=== PATIENT | female | born 1990 | race Caucasian/White ===

== ENCOUNTER 2017-06-12 10:10 | Emergency (ER) | payer BC ==
--- NOTE | 2017-06-12 10:27 | UC ---
Lower Extremity/Ankle HPI - HPI Summary HPI Summary: This 27-year-old 12 week woman comes in today with left calf pain she says she walks a lot at work and has never had pain like this ever before the pain radiates from the back of her calf down to her ankle she does not have any swelling she does not have any family history of DVT or clotting disorders she has not been on any long trips or had any prolonged Bed rest. neuro motor situation intact distally - History of Current Complaint Chief Complaint: UCLowerExtremity Stated Complaint: LEG SWELLING PAIN Time Seen by Provider: 06/12/17 10:24 Hx Obtained From: Patient ?: Yes - 12 weeks Onset/Duration: Sudden Onset, Lasting Days - 2 Severity Initially: Mild Severity Currently: Moderate Pain Intensity: 6 Pain Scale Used: 0-10 Numeric Aggravating Factor(s): Standing Alleviating Factor(s): Nothing Able to Bear Weight: Yes - Allergies/Home Medications Allergies/Adverse Reactions: Allergies Allergy/AdvReac Type Severity Reaction Status Date / Time No Known Allergies Allergy Verified 06/12/17 10:13 Home Medications: Home Medications Loratadine [Claritin] 10 mg PO DAILY 06/12/17 [History Confirmed 06/12/17] Pre- Vitamin 1 tab PO DAILY 06/12/17 [History Confirmed 06/12/17] raNITIdine HCl [Zantac] 150 mg PO DAILY 06/12/17 [History Confirmed 06/12/17] PMH/Surg Hx/FS Hx/Imm Hx Previously Healthy: No - enviromental allergies GI/ History: Gastroesophageal Reflux - Surgical History Surgical History: Yes Surgery Procedure, Year, and Place: wisdom teeth - Family History Known Family History: Positive: None - Social History Occupation: Employed Full-time Lives: With Family Alcohol Use: None Substance Use Type: None Smoking Status (MU): Former Smoker Review of Systems Constitutional: Negative Skin: Negative Eyes: Negative ENT: Negative Respiratory: Negative Cardiovascular: Negative Gastrointestinal: Negative Genitourinary: Negative Motor: Negative Neurovascular: Negative Musculoskeletal: Myalgia - left calf Neurological: Negative Psychological: Negative Is Patient Immunocompromised?: No All Other Systems Reviewed And Are Negative: Yes Physical Exam Triage Information Reviewed: Yes Appearance: Well-Appearing, No Pain Distress, Well-Nourished Vital Signs: Initial Vital Signs Temp 99.5 F 06/12/17 10:15 Pulse 91 03/02/18 10:15 Resp 16 06/12/17 10:15 BP 144/82 06/12/17 10:15 Pulse Ox 100 06/12/17 10:15 Vital Signs Reviewed: Yes Eye Exam: Normal ENT Exam: Normal ENT: Positive: Normal ENT inspection, Hearing grossly normal. Negative: Trismus , Muffled voice, Hoarse voice, Dental tenderness Dental Exam: Normal Neck exam: Normal Neck: Positive: Supple, Nontender, No Lymphadenopathy Respiratory Exam: Normal Respiratory: Positive: Chest non-tender, No respiratory distress, No accessory muscle use Cardiovascular Exam: Normal Cardiovascular: Positive: RRR, Pulses Normal, Brisk Capillary Refill Musculoskeletal Exam: Normal Musculoskeletal: Positive: Strength Intact, ROM Intact, No Edema Neurological Exam: Normal Neurological: Positive: Alert, Muscle Tone Normal Psychological Exam: Normal Skin Exam: Normal Diagnostics - Laboratory Diagnostic Studies Completed/Ordered: Ultrasound of left lower extremity showed an occlusion in the tibial vein near the ankle. ultrasound showed a single live intrauterine 12 weeks 3 days gestation heart rate 160 bpm Lower Extremity Course/Dx - Course Course Of Treatment: Course of treatment reviewed this case extensively with Dr. Muller who was on-call for [facility] plan is to start patient on 100 mg of Lovenox twice a day have her call the office Thursday for sooner appointment than her scheduled appointment for next Thursday follow up with Dr. Marbella Burgess or Dr. Szymanski. for hematoma consult and she will be out of work until reevaluated by [facility] myself nurse went in an assisted patient and provided education and safe Lovenox injecting patient was able to inject herself with Lovenox safely and had good understanding she does have family support at home as her brother is diabetic as well Dr. Jackson did want not want any blood work done prior to her appointment with [facility] - Differential Dx/Diagnosis Provider Diagnoses: DVT left tibial gordy near ankle, live IUP 12week 3 d, hypertension without dx of hypertension Discharge - Discharge Plan Condition: Good Disposition: HOME Prescriptions: Enoxaparin(*) [Lovenox(*)] 100 mg SUBCUT Q12HR #60 syringe Patient Education Materials: Deep Vein Thrombosis (ED), Enoxaparin (By injection) Forms: *Work Release Referrals: Marbella Wayne MD [Medical Doctor] - As Soon As Possible [facility] [Provider Group] - As Soon As Possible (I) Additional Instructions: Follow-up instructions call [facility] on Thursday to schedule a sooner appointment per Dr. Fritz Muller call for follow-up appointment with Dr. Marbella Wayne or Dr. Szymanski who are hematology specialists to evaluate the reason for this blood clot you'll be out of work until reevaluated by [facility] next week and please continue your Lovenox
--- NOTE | 2017-06-12 11:32 | RAD ---
INDICATION: Pain and swelling. 12 weeks COMPARISON: None TECHNIQUE: Duplex interrogation of the Lowerextremity was performed. FINDINGS: Deep veins: The common femoral, great saphenous, profunda femoris, proximal, mid, and distal deep femoral, popliteal, posterior tibial, and peroneal veins are interrogated. The distal posterior tibial vein at the ankle appear thrombosed remaining deep venous structures is normal compressibility, augmentation, and phasic flow. Superficial veins: There are no findings of superficial thrombophlebitis. Popliteal fossa:There is no evidence of a popliteal cyst. Soft tissues:There are no soft tissue abnormalities. IMPRESSION: POSITIVE FOR DEEP VENOUS THROMBOSIS. THERE is THROMBOSIS OF THE POSTERIOR TIBIAL VEINS AT THE ANKLE, OTHERWISE NEGATIVE. NO EVIDENCE OF DEEP VENOUS THROMBOSIS ABOVE THE KNEE
[2017-06-12 12:14] VITALS: BP 141/73
--- NOTE | 2017-06-12 12:26 | RAD ---
HISTORY: First ultrasound, . Size dates viability. No other history is provided. Gestational age by dates of 12 weeks and 1 day COMPARISONS: None available at the time of dictation TECHNIQUE: Multiple transverse and longitudinal ultrasound images were obtained of the pelvis using grayscale, and M-Mode Doppler imaging using the transabdominal transducer. FINDINGS: UTERUS: The uterus is normal in shape, size, contour, and echotexture. GESTATION: There is a single live intrauterine gestation. The crown-rump length measures 5.9 cm for a gestational age of 12 weeks, 3 days. The BUBBA is December 22, 2017. This is concordant with age by dates. cardiac motion is detected at a rate of 160 beats per minute. Gross movement is identified. anatomy cannot be assessed secondary to early dates. The amniotic fluid is qualitatively normal. There are no retroplacental fluid collections. CUL-DE-SAC: There is no free fluid within the cul-de-sac. RIGHT OVARY: The right ovary measures 4.1 x 3.5 x 2.7 cm. LEFT OVARY: The left ovary measures 3.4 x 4.2 x 2.8 cm. BLADDER: The visualized bladder is unremarkable. OTHER: The cervix measures 8.2 cm in length IMPRESSION: SINGLE LIVE INTRAUTERINE GESTATION AT 12 WEEKS AND 3 DAYS BY CROWN-RUMP LENGTH.
[2017-06-12] MEDS ORDERED: Enoxaparin(*) 100 MG/ML SYR SUBCUT ONE ×2 (12:57→13:19)
== END 2017-06-12 13:30 | disposition home or self-care (01) ==
LOC: UCEAST 10:10
DX: O22.31 Deep phlebothrombosis in pregnancy, first trimester (principal); I82.442 Acute embolism and thrombosis of left tibial vein; O16.1 Unspecified maternal hypertension, first trimester; Z3A.12 12 weeks gestation of pregnancy; K21.9 Gastro-esophageal reflux disease without esophagitis
CPT/HCPCS: 76802; 96372; 99212; G0463; J1650

== ENCOUNTER 2017-08-13 07:23 | Emergency (ER) | payer BC ==
[2017-08-13 07:41] VITALS: BP 135/79
--- NOTE | 2017-08-13 07:57 | UC ---
Angus Walls Angela, scribed for Tracey Brar MD on 08/13/17 at 0753 . General HPI - HPI Summary HPI Summary: This pt is a 27 y/o female, currently 21 weeks , presenting to [facility] c/o nausea, vomiting, and diarrhea. Pt reports her vomiting began last night at 21:30 and since then she has had 5 episodes of emesis. The last episode of emesis was at 03:00 today. Her diarrhea began at 03:00 today, her last episode of diarrhea was 1 hour ago. Denies black or bloody stools. She additionally notes cramping in bilateral abd sides improved with BM. Pt is able to feel movement. Denies vaginal bleeding, discharge, dysuria, hematuria. Denies sick contacts. Pt became sick after she had food at work yesterday but no one else ate this. Pt is currently on Lovenox for DVT, she has not missed any doses. She has an appointment in [place] for her comprehensive US at 15:00 today. Pt was told should not come if "sick" Pt states she is here to see "if I can go" She took her vitamins yesterday, she notes she takes them sporadically , and this was the first time after 5 days. NKDA. Pt drank 1 bottle of water since 3am Pt denies vaginal discharge, bleeding, cramping Patients medication reviewed this visit. - History of Current Complaint Chief Complaint: UCAbdominalPain Stated Complaint: VOMITING Time Seen by Provider: 08/13/17 07:45 Hx Obtained From: Patient Hx Last Menstrual Period: 03/19/17 Onset/Duration: Lasting Hours, Still Present Current Severity: Mild Pain Intensity: 3 Pain Location at: abd Character: cramping Aggravating: nothing Alleviating: nothing Associated Signs & Symptoms: Positive: Abdominal Pain, Diarrhea, Nausea, Vomiting, Other - NEG: vaginal bleeding, discharge, dysuria, hematuria.. Negative: Dysuria, Fever - Allergy/Home Medications Allergies/Adverse Reactions: Allergies Allergy/AdvReac Type Severity Reaction Status Date / Time No Known Allergies Allergy Verified 08/13/17 07:32 PMH/Surg Hx/FS Hx/Imm Hx Cardiovascular History: Deep Vein Thrombosis Respiratory History: Asthma - Surgical History Surgical History: Yes Surgery Procedure, Year, and Place: wisdom teeth - Family History Known Family History: Negative: Cardiac Disease, Hypertension, Diabetes - Social History Occupation: Employed Full-time Alcohol Use: None Substance Use Type: None Smoking Status (MU): Former Smoker Review of Systems Constitutional: Negative Skin: Negative Eyes: Negative ENT: Negative Respiratory: Negative Cardiovascular: Negative Gastrointestinal: Abdominal Pain, Vomiting, Diarrhea, Nausea, Other - NEG: black or bloody stools Genitourinary: Negative Motor: Negative Neurovascular: Negative Musculoskeletal: Negative Neurological: Negative Psychological: Negative All Other Systems Reviewed And Are Negative: Yes Physical Exam Triage Information Reviewed: Yes Appearance: Well-Appearing, No Pain Distress, Well-Nourished Vital Signs: Initial Vital Signs Temp 98.1 F 08/13/17 07:34 Pulse 129 08/13/17 07:34 Resp 14 08/13/17 07:34 BP 135/79 08/13/17 07:34 Pulse Ox 98 08/13/17 07:34 Vital Signs Reviewed: Yes Eye Exam: Normal Eyes: Positive: Conjunctiva Clear ENT Exam: Normal ENT: Positive: Normal ENT inspection, Hearing grossly normal, Pharynx normal, TMs normal Dental Exam: Normal Neck exam: Normal Neck: Positive: Supple, Nontender, No Lymphadenopathy Respiratory Exam: Normal Respiratory: Positive: Chest non-tender, Lungs clear, Normal breath sounds, No respiratory distress, No accessory muscle use Cardiovascular Exam: Normal Cardiovascular: Positive: RRR, No Murmur, Pulses Normal Abdominal Exam: Normal Abdomen Description: Positive: Nontender, No Organomegaly, Soft, Other: - gravid soft + BS no guarding, no rebound Musculoskeletal Exam: Normal Musculoskeletal: Positive: Strength Intact Neurological Exam: Normal Neurological: Positive: Alert Psychological Exam: Normal Skin Exam: Normal Course/Dx - Course Course Of Treatment: heart rate is 160. pt with n/v/d since last pm. Pt has had 1 and 1/2 bottle water since 3am. no further vomiting. Pt well appearing. VSS. Will check urine for UTI and ketones. recommend home and rest. frequent sips. zofran prn. strict return precautions. Pt comfortable and in agreement with plan - Differential Dx - Multi-Symptom Provider Diagnoses: acute nausea/vomiting. acute diarrhea Discharge - Sign-Out/Discharge Documenting (check all that apply): Discharge/Admit/Transfer - Discharge - Discharge Plan Condition: Stable Disposition: HOME Prescriptions: Ondansetron [Zofran Odt] 4 mg PO Q6HR PRN #5 tab.rapdis PRN Reason: Vomiting Patient Education Materials: Acute Nausea and Vomiting (ED), Acute Diarrhea (ED ) Referrals: Nely Suggs MD [Primary Care Provider] - Additional Instructions: - It is important you stay hydrate. For the first 6 hours, eat and drink clears (water, holli kapil, soup broth, jello, popsicles, Gatorade). If you tolerate this okay, add bland foods such as dry toast, scrambled eggs, crackers. Wait until you are feeling better for 24 hours before eating spicy food, acidic food, tomato based food, fried food. - Okay to take medications as prescribed for nausea - Okay to take Tylenol every 6 hours for fever or pain - If your symptoms persist or you develop new or concerning symptoms it is recommended you contact your kinesiology internship doctor or go to the emergency department for additional treatment and care - Billing Disposition and Condition Condition: STABLE Disposition: HOME The documentation as recorded by the Angus lewis Angela accurately reflects the service I personally performed and the decisions made by me, Tracey Brar MD.
== END 2017-08-13 08:30 | disposition home or self-care (01) ==
LOC: UCEAST 07:23
DX: O21.2 Late vomiting of pregnancy (principal); R19.7 Diarrhea, unspecified; R10.32 Left lower quadrant pain; R10.31 Right lower quadrant pain; Z3A.21 21 weeks gestation of pregnancy; Z86.718 Personal history of other venous thrombosis and embolism; Z79.01 Long term (current) use of anticoagulants; J45.909 Unspecified asthma, uncomplicated; Z87.891 Personal history of nicotine dependence
CPT/HCPCS: 81003; 99212; G0463

== ENCOUNTER 2017-12-18 11:30 | Inpatient (IN) | payer BC ==
[2017-12-18] MEDS ORDERED: Dinoprostone* 10 MG VAG.SUPP VAGINAL ONE (11:34)
--- NOTE | 2017-12-18 15:39 | HP ---
General Information - Reason for Visit Pt present for induction of labor 2nd to being on a high dose of heparin due to DVT in the first trimester. - General Information Maternal Age: 27 Grav: 2 Para: 0 SAB: 1 IEA: 0 Estimated Due Date: 12/24/17 Determined By: LMP Maternal Blood Type and Rh: A Positive - Results this Serology/RPR Result: Non-Reactive Rubella Result: Immune HBsAg Result: Negative HIV Result: Negative GBS Culture Result: Negative Past Medical History Pertinent Past Medical History: See Records Pertinent Past Surgical History: See Records Pertinent Family History: Non-Contributory - Antepartal Records Antepartal Records: Reviewed, Complicated by: - DVT in 1st trimester Review of Systems Constitutional: Comfortable CV Complaint: No Respiratory: Shortness of Breath: No Gastrointestinal: No Nausea/Vomiting, Normal Bowel Movement Genitourinary: No Dysuria, No Bleeding, No Leaking Fluid Musculoskeletal: No Complaint Neurological: No Headache, No Visual Changes Movement: Normal Exam Allergies/Adverse Reactions: Allergies No Known Allergies Allergy (Verified 08/13/17 07:32) WNL - Measurements Height: 5 ft 10 in Weight: 276 lb Weight in lbs: [phone] Body Mass Index (BMI): 39.6 Pre- Weight: 256 lb Weight Gained This : 20 lbs and 0 ozs - Exam Breast: Breast Exam Deferred Extremities: No Edema Heart: Normal Rhythm/Heart Sounds HEENT: No Significant Findings - Abdominal Exam Abdomen Exam: Non-Tender, Fundal Height Consistent with Dates - Ultrasound/Biophysical Profile Ultrasound Status: Not Done Targeted Exam Findings Cervical Exam: 1cm Effacement: 50% Presenting Part: Vertex Membrane Status: Intact EFM Findings - External Monitor Findings Baseline Heart Rate: 140 External Monitor Findings: Accelerations Present, No Pattern of Variable or Late Decelerations, Variability Moderate, Baseline Stable Contractions: None
[2017-12-19] MEDS ORDERED: Nalbuphine* 10 MG/ML 1 ML VIAL IV ONE ×3 (00:20→20:03)
[2017-12-19] MEDS ORDERED: Promethazine INJ(RESTRICTED)* 25 MG/ML 1 ML VIAL IV ONE ×3 (00:20→20:03)
[2017-12-19] MEDS ORDERED: Promethazine INJ(RESTRICTED)* 25 MG/ML 1 ML VIAL ONE ×2 (00:33→09:40)
[2017-12-19] MEDS ORDERED: Nalbuphine* 10 MG/ML 1 ML VIAL ONE ×2 (00:33→09:40)
[2017-12-19] MEDS ORDERED: Lidocaine 1%* 5 ML VIAL ONE (00:33)
[2017-12-19 01:11] LABS: Hematocrit 33 % (35-47); Hemoglobin 10.9 g/dl (12.0-16.0); Mean Corpuscular HGB Conc 34 g/dl (31-36); Mean Corpuscular Hemoglobin 27 pg (27-31); Mean Corpuscular Volume 79 fL (80-97); Mean Platelet Volume 8.8 um3 (7.4-10.4); Platelet Count 169 10^3/ul (150-450); Red Blood Count 4.11 10^6/ul (4.00-5.40); Red Cell Distribution Width 15 % (10.5-15); White Blood Count 8.3 10^3/ul (3.5-10.8)
[2017-12-19 01:21] LABS: INR 0.89 (0.77-1.02)
[2017-12-19 01:32] LABS: ABS Basophils 0 10^3/ul (0-0.2); ABS Eosinophils 0.1 10^3/ul (0-0.6); ABS Lymphocytes 1.8 10^3/ul (1.0-4.8); ABS Monocytes 0.7 10^3/ul (0-0.8); ABS Neutrophils 5.7 10^3/ul (1.5-7.7); ABS Nucleated RBC 0 10^3/ul; Lymphocyte % 21.5 % (25-47); Nucleated Red Blood Cells % 0
[2017-12-19] MEDS ORDERED: Misoprostol TAB* 100 MCG ONE (15:18)
[2017-12-19] MEDS ORDERED: Misoprostol TAB* 100 MCG PO ONE (15:30)
[2017-12-19] MEDS ORDERED: Oxytocin in LR* 20 UNITS/1,000 ML BAG IVPB ONE (19:47)
[2017-12-19] MEDS: Oxytocin in LR* 20 UNITS/1,000 ML BAG IVPB SCH (20:18)
[2017-12-20] MEDS ORDERED: OBEPIDURAL* 250 ML EPIDURAL ONE (08:09)
[2017-12-20] MEDS ORDERED: Phenylephrine IV* 40 MCG/ML 10 ML SYRINGE IV PUSH PRN ×2 (09:35)
[2017-12-20] MEDS ORDERED: EPHEDrine (Pressors)* 50 MG/ML VIAL IV PUSH PRN ×2 (09:35)
[2017-12-20] MEDS ORDERED: Sodium Citrate/Citric Acid* 15 ML UDC PO PRN (09:35)
[2017-12-20] MEDS ORDERED: Famotidine TAB* 20 MG PO PRN (09:35)
[2017-12-20] MEDS ORDERED: OBEPIDURAL* 250 ML EPIDURAL SCH (10:00)
[2017-12-20] MEDS ORDERED: Calcium Carbonate CHEW TAB* 500 MG (TUMS) ONE (10:32)
[2017-12-20] MEDS: Calcium Carbonate CHEW TAB* 500 MG (TUMS) PO PRN ×2 (10:36→14:53)
[2017-12-20] MEDS: Oxytocin in LR* 20 UNITS/1,000 ML BAG IVPB SCH (12:16)
[2017-12-20] MEDS ORDERED: ceFOXitin 2 GM IVPREMIX* 4 GM/100 ML BAG ONE (16:24)
[2017-12-20] MEDS ORDERED: ceFOXitin 2 GM IVPREMIX* 2 GM/50 ML BAG IVPB ONE (16:28)
[2017-12-20] MEDS ORDERED: ceFOXitin 2 GM IVPREMIX* 50 ML IVPB ONE (16:31)
[2017-12-20] MEDS ORDERED: Lidocaine 2% PF* 10 ML AMP ONE ×2 (16:59→21:16)
[2017-12-20] MEDS ORDERED: ceFOXitin(*) 1 GM in NS 0.9% 50 ML* 50 ML IVPB ONE (17:00)
[2017-12-20] MEDS ORDERED: Ondansetron INJ* 2 MG/ML VIAL ONE (17:24)
[2017-12-20] MEDS ORDERED: Ketorolac INJ* 30 MG/ML 1 ML VIAL ONE (17:28)
[2017-12-20] MEDS ORDERED: OXYTOCIN* 10 UNITS/ML 1 ML VIAL ONE (17:41)
[2017-12-20] MEDS ORDERED: Morphine PF AMP (0.5MG/ML)* 5 MG/10 ML AMP ONE (18:02)
[2017-12-20] MEDS ORDERED: Glycerin ADULT SUPP PR PRN (18:17)
[2017-12-20] MEDS ORDERED: Methylergonovine INJ* 0.2 MG/ML 1ML AMP IM ONE (18:17)
[2017-12-20] MEDS ORDERED: Dibucaine 1% 28.35 GM TUBE PR PRN (18:17)
[2017-12-20] MEDS ORDERED: Naloxone* 0.4 MG/ML 1 ML VIAL IV PRN ×2 (18:17→18:18)
[2017-12-20] MEDS ORDERED: fentaNYL* 50 MCG/ML 2 ML VIAL (100 MCG VIAL) IV PRN (18:17)
[2017-12-20] MEDS ORDERED: Acetaminophen TAB* 325 MG PO PRN (18:17)
[2017-12-20] MEDS ORDERED: HYDROmorphone INJ1* 1 MG/ML SYRINGE IV PRN (18:17)
[2017-12-20] MEDS ORDERED: Ondansetron INJ* 2 MG/ML VIAL IV PRN ×2 (18:17→18:18)
[2017-12-20] MEDS ORDERED: Witch Hazel PAD* JAR TOPICAL PRN (18:17)
[2017-12-20] MEDS ORDERED: Scopolamine 1.5 mg* PATCH TRANSDERM PRN (18:18)
[2017-12-20] MEDS ORDERED: diPHENhydraMINE IV* 50 MG/ML 1 ml VIAL (BENADRYL) IV PRN (18:18)
[2017-12-20] MEDS ORDERED: DiMENhydriNATE IV* 50 MG/ML VIAL IV PUSH PRN (18:18)
[2017-12-20] MEDS ORDERED: Nalbuphine* 10 MG/ML 1 ML VIAL IV PRN (18:18)
[2017-12-20] MEDS ORDERED: Oxytocin in LR* 20 UNITS/1,000 ML BAG IVPB SCH (19:00)
[2017-12-20] MEDS ORDERED: Enoxaparin(*) 100 MG/ML SYR SUBCUT SCH (21:00)
--- NOTE | 2017-12-20 21:47 | OP ---
OPERATIVE REPORT: DATE OF OPERATION: 12/20/17 DATE OF : 88 SURGEON: Yesenia Muller MD SENIOR MECHANICAL ESTIMATOR: Nay Mart MD and Tracey Lovell CNM ANESTHESIA: Epidural. ANESTHESIOLOGIST: Dr. Taylor PRE-OP DIAGNOSIS: Intrauterine 39 and 3/7 weeks, arrest of dilation. POST-OP DIAGNOSIS: Intrauterine 39 and 3/7 weeks, arrest of dilation. OPERATIVE PROCEDURE: Primary low-transverse section. FINDINGS: Vertex male with Apgars 9 at 1 minute and 9 at 5 minutes. Weight was 9 pounds 5 ounces. Nuchal cord x1. No meconium. Normal-appearing tubes and ovaries bilaterally. Normally palpated placenta. Normal-appearing placenta. Three- vessel cord, manually extracted, intact. ESTIMATED BLOOD LOSS: 600 mL. URINE OUTPUT: 400 mL of clear yellow urine. FLUIDS: 1700 mL of crystalloid. COMPLICATIONS: None apparent. DISPOSITION: Stable to recovery room. DESCRIPTION OF PROCEDURE: The patient was placed in dorsal lithotomy supine. Abdomen was prepped and draped in the sterile standard fashion. Traxi was placed before draping the incision. [place] protocol was applied for correct procedure, patient, and position. After documenting adequate anesthesia level, incision was made 2 fingerbreadths above the pubic symphysis. This was carried down through to the fascia. Fascia was scored in the midline, extended laterally and superiorly using curved Whiteside scissors and sharply from the rectus muscle both superiorly and inferiorly. In the midline, linea alba was incised and extended bluntly and the peritoneum was then entered bluntly and peritoneal incision was extended bluntly. Bladder blade was inserted. Low uterine segment was identified, tented up with an Allis and scalpel was used to incise the low uterine segment and this was extended laterally and superiorly using bandage scissors. The was delivered vertex, NAN. Nuchal cord x1 reduced. Anterior posterior shoulder delivered. Cord was allowed to pulse for 60 seconds, doubly clamped, cut, and then the infant was handed off to awaiting banking paralegal, Dr. Marquez. Appropriate cord blood was obtained. Placenta was then manually extracted. Uterine cavity was explored, noted to be free of any membranes or placental tissue. The uterus was exteriorized. Hysterotomy site was reapproximated using 2 layers of 0 Vicryl, first layer running lock, second layer running imbricated. Tubes and ovaries were noted to have a normal appearance. The uterus was returned intraabdominally. Colic gutters were lavaged. Hemostasis was assured at the hysterotomy site. The peritoneum was then reapproximated using 3-0 Vicryl in a running fashion. Subfascial area was visualized, hemostasis assured, and the fascia itself was reapproximated using 0 -Vicryl x2 in a running fashion. The subcu was lavaged. Hemostasis assured. A Camper's fascial closure was carried out using 3-0 Vicryl in an interrupted fashion. The skin was then reapproximated using 4-0 Monocryl in a subcuticular fashion. Mastisol and Steris were applied. All sponge, instrument, and blade counts were correct throughout the case. The patient tolerated the procedure well and went to recovery room in stable condition. [id number]/[facility] #: [id number]
[2017-12-20] MEDS: Simethicone TAB* 80 MG TAB.CHEW PO SCH (22:31)
[2017-12-20] MEDS: Docusate CAP* 100 MG PO SCH (22:31)
[2017-12-20] MEDS: oxyCODONE/Acetamin 5/325 MG* TAB PO PRN (22:32)
[2017-12-21] MEDS: Ketorolac INJ* 30 MG/ML 1 ML VIAL IV PRN ×2 (00:31→07:53)
[2017-12-21] MEDS: oxyCODONE/Acetamin 5/325 MG* TAB PO PRN ×5 (05:25→22:02)
[2017-12-21 06:19] LABS: ABS Basophils 0 10^3/ul (0-0.2); ABS Eosinophils 0.1 10^3/ul (0-0.6); ABS Lymphocytes 1.2 10^3/ul (1.0-4.8); ABS Monocytes 0.8 10^3/ul (0-0.8); ABS Neutrophils 7.4 10^3/ul (1.5-7.7); ABS Nucleated RBC 0 10^3/ul; Eosinophil % 0.5 % (0-6); Hematocrit 25 % (35-47); Hemoglobin 8.7 g/dl (12.0-16.0); Mean Corpuscular HGB Conc 34 g/dl (31-36); Mean Corpuscular Hemoglobin 27 pg (27-31); Mean Corpuscular Volume 79 fL (80-97); Mean Platelet Volume 8.5 um3 (7.4-10.4); Nucleated Red Blood Cells % 0; Platelet Count 116 10^3/ul (150-450); Red Blood Count 3.18 10^6/ul (4.00-5.40); Red Cell Distribution Width 15 % (10.5-15); White Blood Count 9.5 10^3/ul (3.5-10.8)
[2017-12-21] MEDS: Docusate CAP* 100 MG PO SCH ×3 (09:37→22:02)
[2017-12-21] MEDS: Simethicone TAB* 80 MG TAB.CHEW PO SCH ×4 (09:37→22:02)
[2017-12-21] MEDS: Ferrous Gluconate TAB* 324 MG TAB PO SCH ×2 (09:37→22:01)
[2017-12-21] MEDS ORDERED: oxyCODONE/Acetamin 5/325 MG* TAB PO PRN (10:18)
[2017-12-21] MEDS: Ibuprofen TAB* 600 MG PO PRN ×2 (14:14→19:53)
[2017-12-21] MEDS: Enoxaparin(*) 100 MG/ML SYR SUBCUT SCH (17:02)
[2017-12-22] MEDS: Ibuprofen TAB* 600 MG PO PRN ×4 (03:56→23:14)
[2017-12-22] MEDS: oxyCODONE/Acetamin 5/325 MG* TAB PO PRN ×5 (03:56→20:48)
[2017-12-22] MEDS: Enoxaparin(*) 100 MG/ML SYR SUBCUT SCH ×2 (06:05→18:01)
[2017-12-22] MEDS: Docusate CAP* 100 MG PO SCH ×3 (07:56→20:48)
[2017-12-22] MEDS: Ferrous Gluconate TAB* 324 MG TAB PO SCH ×2 (07:56→20:49)
[2017-12-22] MEDS: Simethicone TAB* 80 MG TAB.CHEW PO SCH ×4 (07:56→20:50)
[2017-12-23] MEDS: oxyCODONE/Acetamin 5/325 MG* TAB PO PRN ×3 (04:19→12:43)
[2017-12-23] MEDS: Enoxaparin(*) 100 MG/ML SYR SUBCUT SCH (06:53)
[2017-12-23] MEDS: Docusate CAP* 100 MG PO SCH ×2 (08:41→12:41)
[2017-12-23] MEDS: Simethicone TAB* 80 MG TAB.CHEW PO SCH ×2 (08:41→12:41)
[2017-12-23] MEDS: Ferrous Gluconate TAB* 324 MG TAB PO SCH (08:41)
[2017-12-23] MEDS: Ibuprofen TAB* 600 MG PO PRN (08:43)
[2017-12-23 08:53] VITALS: BP 116/61
[2017-12-23] MEDS ORDERED: Scopolamine PATCH Remove* 1 NOTE MISC PATCH OFF PRN (18:19)
== END 2017-12-23 14:05 | disposition home or self-care (01) | DRG 540 ==
LOC: MCHOBOUT 11:30 → MCHOB 14:52
PROVIDERS: ADMIT Obstetrics & Gynecology; ATTEND Obstetrics & Gynecology
PROC: 3E033VJ Introduction of Other Hormone into Peripheral Vein, Percutaneous Approach (ICD-10-PCS; 2017-12-20)
PROC: 10907ZC Drainage of Amniotic Fluid, Therapeutic from Products of Conception, Via Natural or Artificial Opening (ICD-10-PCS; 2017-12-20)
PROC: 10D00Z1 Extraction of Products of Conception, Low, Open Approach (ICD-10-PCS; principal; 2017-12-20 16:49)
DX: O62.0 Primary inadequate contractions (principal); O75.89 Other specified complications of labor and delivery; O69.81X0 Labor and delivery complicated by cord around neck, without compression, not applicable or unspecified; Z86.718 Personal history of other venous thrombosis and embolism; Z79.01 Long term (current) use of anticoagulants; Z3A.39 39 weeks gestation of pregnancy; Z37.0 Single live birth
CPT/HCPCS: 36415; 85025; 85610; 85730; 86850; 86900; 86901; A9270-GY; J0694; J1650; J1885; J2001; J2300; J2405; J2550; J2590; S0191

== ENCOUNTER 2018-10-09 18:41 | Emergency (ER) | payer BC ==
--- NOTE | 2018-10-09 21:03 | ED ---
Abdominal Pain/Female - HPI Summary HPI Summary: A 28 y/o female presents to [facility] with a chief complaint of RUQ abdominal pain. The patient states that she knows that she has had gallstones for about one year. She says that at the time she was , and over the past year, she has only had RUQ pain about 12 times. She says that her pain started last night , lasting a couple hours, then was relieved for about 4 hours, then came back again. At triage she rated her pain as a 7/10 in severity. - History of Current Complaint Chief Complaint: EDAbdPain Stated Complaint: GALLBLADDER ISSUES PER PT Time Seen by Provider: 10/09/18 20:46 Hx Obtained From: Patient Hx Last Menstrual Period: 03/19/17 Onset/Duration: Sudden Onset, Lasting Hours, Still Present Timing: Intermittent Episode Lasting - hours Severity Initially: Severe Severity Currently: Severe Pain Intensity: 7 Pain Scale Used: 0-10 Numeric Location: Discrete At: RUQ Radiates: No Character: Other: - unable to describe Aggravating Factor(s): Nothing Alleviating Factor(s): Nothing Associated Signs and Symptoms: Negative: Fever Allergies/Adverse Reactions: Allergies Allergy/AdvReac Type Severity Reaction Status Date / Time No Known Allergies Allergy Verified 08/13/17 07:32 Home Medications: Home Medications NK [No Home Medications Reported] 10/09/18 [History Confirmed 10/09/18] PMH/Surg Hx/FS Hx/Imm Hx Endocrine/Hematology History: Denies: Hx Diabetes, Hx Thyroid Disease Cardiovascular History: Denies: Hx Hypertension Respiratory History: Reports: Hx Asthma Denies: Hx Chronic Obstructive Pulmonary Disease (COPD) GI History: Denies: Hx Ulcer - Surgical History Surgery Procedure, Year, and Place: wisdom teeth Infectious Disease History: Unable to Obtain/Confirm Infectious Disease History: Denies: Hx Hepatitis, Hx Human Immunodeficiency Virus (HIV), Traveled Outside the [place] in Last 30 Days - Family History Known Family History: Negative: Cardiac Disease, Hypertension, Diabetes - Social History Alcohol Use: None Substance Use Type: Reports: None Smoking Status (MU): Former Smoker Have You Smoked in the Last Year: No Review of Systems Negative: Fever Positive: Abdominal Pain All Other Systems Reviewed And Are Negative: Yes Physical Exam - Summary Physical Exam Summary: VITAL SIGNS: Reviewed. GENERAL: Patient is a well-developed and nourished FEMALE who is lying comfortable in the stretcher. Patient is not in any acute respiratory distress. HEAD AND FACE: No signs of trauma. No ecchymosis, hematomas or skull depressions. No sinus tenderness. EYES: PERRLA, EOMI x 2, No injected conjunctiva, no nystagmus. EARS: Hearing grossly intact. Ear canals and tympanic membranes are within normal limits. MOUTH: Oropharynx within normal limits. NECK: Supple, trachea is midline, no adenopathy, no JVD, no carotid bruit, no c- spine tenderness, neck with full ROM CHEST: Symmetric, no tenderness at palpation LUNGS: Clear to auscultation bilaterally. No wheezing or crackles. CVS: Regular rate and rhythm, S1 and S2 present, no murmurs or gallops appreciated. ABDOMEN: RUQ tenderness. No signs of distention. No rebound no guarding, and no masses palpated. Bowel sounds are normal. EXTREMITIES: FROM in all major joints, no edema, no cyanosis or clubbing. NEURO: Alert and oriented x 3. No acute neurological deficits. Speech is normal and follows commands. SKIN: Dry and warm Triage Information Reviewed: Yes Vital Signs On Initial Exam: Initial Vitals Temp Pulse Resp BP Pulse Ox 98.3 F 92 18 135/90 97 10/09/18 18:43 10/09/18 18:43 10/09/18 18:43 10/09/18 18:43 10/09/18 18:43 Vital Signs Reviewed: Yes Diagnostics - Vital Signs Vital Signs Temp Pulse Resp BP Pulse Ox 10/09/18 18:43 98.3 F 92 18 135/90 97 - Laboratory Result Diagrams: 10/09/18 21:58 10/09/18 21:58 Lab Statement: Any lab studies that have been ordered have been reviewed, and results considered in the medical decision making process. - Ultrasound No standard instances Ultrasound Interpretation Completed By: Radiologist Summary of Ultrasound Findings: Gallbladder ultrasound impression: 1. Cholelithiasis without cholecystitis. 2. Hepatic steatosis and associated hepatomegaly. 3. Bosniak type I renal cyst. No followup indicated. ED physician has reviewed this imaging report. Re-Evaluation - Re-Evaluation First Eval Re-Evaluation Time: 23:30 Change: Unchanged Comment: Discussed results Abdominal Pain Fem Course/Dx - Course Course Of Treatment: A 28 y/o female presents to [facility] with a chief complaint of RUQ abdominal pain. The patient states that she knows that she has had gallstones for about one year. The physical exam revealed RUQ tenderness. Gallbladder ultrasound impression: 1. Cholelithiasis without cholecystitis. 2. Hepatic steatosis and associated hepatomegaly. 3. Bosniak type I renal cyst. No followup indicated. Bloodwork, chemistries and urines obtained. In the ED course the patient was given Reglan IV, Morphine IV and Sodium Chloride IV. Discussed patients imaging and bloodwork with Dr. Garg. Pt is to follow up in the office at 0900 on 10/11/18, if fever, pain or vomiting returns she should come to the ED. The patient is agreeable with this plan. - Diagnoses Provider Diagnoses: Elevated liver enzymes, Cholelithiasis - Provider Notifications Discussed Care Of Patient With: Sussy Garg Time Discussed With Above Provider: 23:31 Instructed by Provider To: Other - Discussed patients imaging and bloodwork. Pt is to follow up in the office at 0900 on 10/11/18, if fever, pain or vomiting returns she should come to the ED Discharge - Sign-Out/Discharge Documenting (check all that apply): Patient Departure - DC Patient Received Moderate/Deep Sedation with Procedure: No - Discharge Plan Condition: Stable Disposition: HOME Patient Education Materials: Gallstones (ED) Referrals: Nely Suggs MD [Primary Care Provider] - 3 Days Sussy Garg MD [Medical Doctor] - Additional Instructions: follow up with Britany's office at 09:00 on 10/11/18. If fever, pain or vomiting returns return to the ED immediately. - Billing Disposition and Condition Condition: STABLE Disposition: Home - Attestation Statements Document Initiated by Rohanibalexandra: Yes Documenting Scribe: Vik Ponce Provider For Whom Toya is Documenting (Include Credential): Bibiana Brunson MD Scribe Attestation: Vik Walls scribed for Bibiana Brunson MD on 10/10/18 at 0511. Scribe Documentation Reviewed: Yes Provider Attestation: The documentation as recorded by the Vik lewis accurately reflects the service I personally performed and the decisions made by Raz stephens MD Status of Scribe Document: Viewed
[2018-10-09] MEDS ORDERED: Morphine 4 MG/ML VIAL (1 ml) 4 MG/ML VIAL IV ONE (21:04)
[2018-10-09] MEDS ORDERED: Metoclopramide IV* 5 MG/ML 2 ML VIAL IV SLOW PU ONE (21:04)
[2018-10-09] MEDS ORDERED: NS 0.9% 1000 ML** 1,000 ML IV ONE (21:05)
[2018-10-09 22:06] LABS: ABS Eosinophils 0.1 10^3/ul (0-0.6); ABS Lymphocytes 1.3 10^3/ul (1.0-4.8); ABS Monocytes 0.3 10^3/ul (0-0.8); ABS Neutrophils 2.4 10^3/ul (1.5-7.7); Eosinophil % 1.9 %; Hematocrit 37 % (35-47); Hemoglobin 12.8 g/dL (12.0-16.0); Lymphocyte % 31.7 %; Mean Corpuscular HGB Conc 34 g/dL (31-36); Mean Corpuscular Hemoglobin 28 pg (27-31); Mean Corpuscular Volume 82 fL (80-97); Mean Platelet Volume 7.2 fL (7.4-10.4); Platelet Count 277 10^3/uL (150-450); Red Blood Count 4.51 10^6 /uL (3.70-4.87); Red Cell Distribution Width 15 % (10-15); White Blood Count 4.1 10^3/uL (3.5-10.8)
[2018-10-09 22:21] VITALS: BP 143/91
[2018-10-09 22:24] LABS: ALT 409 U/L (7-52); AST 501 U/L (13-39); Albumin/Globulin Ratio 1.4 (1-3); Alkaline Phosphatase 92 U/L (34-104); Amylase 25 U/L (29-103); Anion Gap 8 mmol/L (2-11); BUN/Creatinine Ratio 24.6 (8-20); Blood Urea Nitrogen 14 mg/dL (6-24); C Reactive Protein 4.99 mg/L (<8.01); CO2 Carbon Dioxide 27 mmol/L (22-32); Calcium 9.7 mg/dL (8.6-10.3); Chloride 104 mmol/L (101-111); EGFR African American 151.7 (>60); EGFR Non-African American 125.4 (>60); Globulin 2.9 g/dL (2-4); Glucose 105 mg/dL (70-100); Potassium 3.8 mmol/L (3.5-5.0); Sodium 139 mmol/L (135-145); Total Protein 6.9 g/dL (6.4-8.9)
[2018-10-09 22:29] LABS: HCG Pregnancy < 0.60 mIU/mL
[2018-10-09 22:38] LABS: Urine Appearance Clear; Urine Bilirubin Negative (Negative); Urine Blood Negative (Negative); Urine Color Amber; Urine Glucose Negative (Negative); Urine Ketones Negative (Negative); Urine Nitrite Negative (Negative); Urine Protein Negative (Negative); Urine Urobilinogen Negative (Negative)
== END 2018-10-09 23:52 | disposition home or self-care (01) ==
LOC: ED 18:41
DX: K80.20 Calculus of gallbladder without cholecystitis without obstruction (principal); R74.8 Abnormal levels of other serum enzymes; Z87.891 Personal history of nicotine dependence; K76.0 Fatty (change of) liver, not elsewhere classified; R16.0 Hepatomegaly, not elsewhere classified; N28.1 Cyst of kidney, acquired
CPT/HCPCS: 36415; 76705; 80053; 81003; 82150; 83690; 83735; 84702; 85025; 86140; 96361; 96374; 96375; 99283; J2270; J2765

== ENCOUNTER 2019-04-29 11:16 | Emergency (ER) | payer BC ==
--- OUTSIDE RECORDS SUMMARY | 2019-04-29 11:25 | XMS REPORT | Continuity of Care Document ---
:1990 External Reference #:[id number] Author Name Binu Diggs PA-C (transmitted by agent of provider Lyndsey Shafer) Address [address] [place] [address] Care Team Providers Name Role Phone Nely Suggs MD - Care Team Information Territory Account Representative [phone] Family Medicine Problems Description No Information Available Social History Type Date Description Comments Sex Unknown ETOH Use Denies alcohol use Tobacco Use Start: Unknown End: Patient is a former smoker Unknown Recreational Drug Use Denies Drug Use Smoking Status Reviewed: 04/28/19 Patient is a former smoker Exercise Type/Frequency Does not exercise Allergies, Adverse Reactions, Alerts Active Allergies Reaction Severity Comments Date NKDA 11/26/2018 Adhesive rash 01/10/2019 Medications Active Medications SIG Qnty Indications Ordering Provider Date Ibuprofen 1 tab po q8h prn 30tabs Nely Hilliard 04/12/2019 800mg pain 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, 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 Tablets Albuterol Sulfate Inhale 2 Puffs By Unknown HFA Mouth Every 4 108(90Base) Hours as Needed mcg/Act Aerosol For Shortness Of Breath Pepcid ac Maximum take 1 -2 tabs by Unknown Strength mouth daily as a 20mg Tablets needed Iron 1 by mouth every Unknown 325(65Fe) mg day as needed Tablets History Medications No Active Medications Trisha Haro MD 11/26/2018 - 01/10/2019 Immunizations Description No Information Available Vital Signs Date Vital Result Comment 04/28/2019 9:53am Heart Rate 84 /min BP Systolic Sitting 120 mmHg BP Diastolic Sitting 82 mmHg Respiratory Rate 16 /min Body Temperature 97.8 F 04/12/2019 9:33am Height 68 inches 5'8" Weight 275.00 lb Heart Rate 72 /min BP Systolic Sitting 118 mmHg BP Diastolic Sitting 82 mmHg Respiratory Rate 16 /min Body Temperature 97.7 F BMI (Body Mass Index) 41.8 kg/m2 Results Test Acquired Date Facility Test Result H/L Range Note Surgical 04/20/2019 [facility] Surgical SEE RESULT [address] [place] [address] [phone] [facility]FR[facility]ort SEE IMAGE 1 SEE RESULT BELOW Name: MIRIAM CASTANEDA : [address]: Steve Messina MD Acct: [id number] Unit: [id number] AGE: 29 Location: OR Re04/20/19 SEX: F Status: REG [facility] SPEC: [id number] LYNDSEY: 04/20/19- SUBM DR: Steve Messina MD REQ: [id number] RECD: 04/20/19 STATUS: SOUT _ ORDERED: LEVEL 3 FINAL DIAGNOSIS Gallbladder, cholecystectomy: -- Chronic cholecystitis with cholelithiasis. PRE-OPERATIVE DIAGNOSIS Calculus of gallbladder with chronic cholecystitis GROSS DESCRIPTION The specimen is received in formalin labeled, Gallbladder and Contents, and consists of a 9.4 x 3.3 x 2.9 cm intact gallbladder. The serosa is glistening smooth purple-vickers with scant adherent yellow fat. Within the lumen there are multiple yellow-green smooth to nodular choleliths ranging from 0.2 cm to 0.4 cm in greatest dimension admixed with green-yellow viscid bile. The mucosa is reticulated brown with mild yellow stippling and the wall thickness measures up to 0.2 cm. Surveillance Manager sections, one cassette. Signed by and Reported on: Uriah Dykes MD 12/31 1503 END OF REPORT DEPARTMENT OF PATHOLOGY, [address] [place] [address] Uriah Dykes M.D. Director [facility] # [id number] Procedures Date Code Description Status 04/20/2019 44613 Laparoscopy Cholecystectomy Completed Medical Devices Description No Information Available Encounters Type Date Location Provider Dx Diagnosis Office Visit 01/10/2019 Surgical Steve Messina, K80.10 [facility], CEZAR gallbladder w chronic cholecyst w/o obstruction K42.0 Umbilical hernia with obstruction, without gangrene E66.01 Morbid (severe) obesity due to excess calories Assessments Date Code Description Provider 04/28/2019 K80.10 Calculus of gallbladder with chronic Binu Diggs PA-C cholecystitis without obstruction 04/20/2019 K80.10 Calculus of gallbladder with chronic Steve Messina MD, CEZAR cholecystitis without obstruction 04/12/2019 K80.10 Calculus of gallbladder with chronic Nely Alfaro NP cholecystitis without obstruction 04/12/2019 Z01.818 Encounter for other preprocedural Nely Alfaro NP examination 02/24/2019 K80.10 Calculus of gallbladder with chronic Steve Messina MD, CEZAR cholecystitis without obstruction 01/10/2019 K80.10 Calculus of gallbladder with chronic Steve Messina MD, CEZAR cholecystitis without obstruction 01/10/2019 K42.0 Umbilical hernia with obstruction, Steve Messina MD, FACS without gangrene 01/10/2019 E66.01 Morbid (severe) obesity due to excess Steve Messina MD, FACS calories 12/01/2018 K80.20 Calculus of gallbladder without Trishacadence Haro MD cholecystitis without obstruction 12/01/2018 K42.9 Umbilical hernia without obstruction or Trisha Haro MD gangrene Plan of Treatment No Information Available Functional Status Description No Information Available Mental Status Description No Information Available Referrals Description No Information Available
--- OUTSIDE RECORDS SUMMARY | 2019-04-29 11:26 | XMS REPORT | Continuity of Care Document ---
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 [phone] Family Medicine Problems Description No Information Available Social History Type Date Description Comments Sex Unknown ETOH Use Denies alcohol use Tobacco Use Start: Unknown End: Patient is a former smoker Unknown Recreational Drug Use Denies Drug Use Smoking Status Reviewed: 04/12/19 Patient is a former smoker Exercise Type/Frequency Does not exercise Allergies, Adverse Reactions, Alerts Active Allergies Reaction Severity Comments Date NKDA 11/26/2018 Adhesive rash 01/10/2019 Medications Active Medications SIG Qnty Indications Ordering Provider Date Ibuprofen 1 tab po q8h prn 30tabs Nely Hilliard 04/12/2019 800mg pain TALIA Alfaro Tablets Albuterol Sulfate Inhale 2 Puffs By [...] Available Vital Signs Date Vital Result Comment 04/12/2019 9:33am Height 68 inches 5'8" Weight 275.00 lb Heart Rate 72 /min BP Systolic Sitting 118 mmHg BP Diastolic Sitting 82 mmHg Respiratory Rate 16 /min Body Temperature 97.7 F BMI (Body Mass Index) 41.8 kg/m2 01/10/2019 10:07am Height 68 inches 5'8" Weight 275.00 lb Heart Rate 76 /min BP Systolic 130 mmHg BP Diastolic 78 mmHg Respiratory Rate 16 /min Body Temperature 97.6 F BMI (Body Mass Index) 41.8 kg/m2 Results Description No Information Available Procedures Description No Information Available Medical Devices Description No Information Available Encounters Type Date Location Provider Dx Diagnosis Office Visit 01/10/2019 Surgical Steve Messina, K80.10 [facility] , FACS gallbladder w chronic cholecyst w/o obstruction K42.0 Umbilical hernia with obstruction, without gangrene E66.01 Morbid (severe) obesity due to excess calories Assessments Date Code Description Provider 04/12/2019 K80.10 Calculus of gallbladder with chronic Nely Alfaro NP cholecystitis without obstruction 04/12/2019 Z01.818 Encounter for other preprocedural Nely Alfaro NP examination 02/24/2019 K80.10 Calculus of gallbladder with chronic Steve Messina MD, FACS cholecystitis without obstruction 01/10/2019 K80.10 Calculus of gallbladder with chronic Steve Messina MD, FACS cholecystitis without obstruction 01/10/2019 K42.0 Umbilical hernia with obstruction, Steve Messina MD, FACS without gangrene 01/10/2019 E66.01 Morbid (severe) obesity due to excess Steve Messina MD, FACS calories 12/01/2018 K80.20 Calculus of gallbladder without Trishacadence Haro MD cholecystitis without obstruction 12/01/2018 K42.9 Umbilical hernia without obstruction or Trisha Haro MD gangrene Plan of Treatment Future Appointment(s):04/28/2019 10:00 am - Gurinder Kaur PA at [facility]04/20/2019 7:30 am - SOCORRO Starr at [facility]04/20/2019 7:30 am - Steve Messina MD, FACS at [facility]04/12/2019 - Nely Alfaro NPK80.10 Calculus of gallbladder with chronic cholecystitis without obstructionFollow up:postop Z01.818 Encounter for other preprocedural examination Functional Status Description No Information Available Mental Status Description No Information Available Referrals Description No Information Available
[2019-04-29 11:42] LABS: ABS Basophils 0.1 10^3/ul (0-0.2); ABS Eosinophils 0.4 10^3/ul (0-0.6); ABS Lymphocytes 2.4 10^3/ul (1.0-4.8); ABS Monocytes 0.4 10^3/ul (0-0.8); ABS Neutrophils 3.2 10^3/ul (1.5-7.7); Eosinophil % 5.5 %; Hematocrit 39 % (35-47); Hemoglobin 13.7 g/dL (12.0-16.0); Lymphocyte % 37.9 %; Mean Corpuscular HGB Conc 35 g/dL (31-36); Mean Corpuscular Hemoglobin 29 pg (27-31); Mean Corpuscular Volume 84 fL (80-97); Mean Platelet Volume 7.1 fL (7.4-10.4); Nucleated Red Blood Cells % 0.1; Platelet Count 296 10^3/uL (150-450); Red Blood Count 4.69 10^6 /uL (3.70-4.87); Red Cell Distribution Width 14 % (10-15); White Blood Count 6.4 10^3/uL (3.5-10.8)
[2019-04-29 12:00] LABS: ALT 27 U/L (7-52); AST 15 U/L (13-39); Albumin 4.3 g/dL (3.2-5.2); Albumin/Globulin Ratio 1.4 (1-3); Alkaline Phosphatase 61 U/L (34-104); Anion Gap 9 mmol/L (2-11); BUN/Creatinine Ratio 28.3 (8-20); Blood Urea Nitrogen 17 mg/dL (6-24); CO2 Carbon Dioxide 20 mmol/L (22-32); Calcium 9.2 mg/dL (8.6-10.3); Chloride 106 mmol/L (101-111); EGFR Non-African American 117.4 (>60); Glucose 90 mg/dL (70-100); Potassium 4.3 mmol/L (3.5-5.0); Sodium 135 mmol/L (135-145); Total Protein 7.3 g/dL (6.4-8.9)
[2019-04-29 12:06] LABS: HCG Pregnancy < 0.60 mIU/mL
--- NOTE | 2019-04-29 13:18 | ED ---
Lower Extremity - HPI Summary HPI Summary: 29 year old female presents with left leg swelling for the past couple days. States she's been sick with a cold. Has had occasional cough. Denies any chest pain or shortness breath. Does have a history of DVTs. Denies any recent travel. Last dvt was when she was . No family history of blood clots. She denies any calf pain. seen her primary today who sent her in for an ultrasound. - History of Current Complaint Chief Complaint: EDExtremityLower Stated Complaint: LEFT LEG SWELLING/COLD SYMPTOMS PER PT Time Seen by Provider: 04/29/19 13:05 Hx Last Menstrual Period: 03/19/17 Pain Intensity: 0 - Allergies/Home Medications Allergies/Adverse Reactions: Allergies Allergy/AdvReac Type Severity Reaction Status Date / Time adhesive tape Allergy Rash And Verified 04/29/19 11:20 Itching PMH/Surg Hx/FS Hx/Imm Hx Endocrine/Hematology History: Reports: Hx Anemia - ON IRON Denies: Hx Diabetes, Hx Thyroid Disease Cardiovascular History: Denies: Hx Hypertension Respiratory History: Reports: Hx Asthma - RESCUE INHALER Denies: Hx Chronic Obstructive Pulmonary Disease (COPD) GI History: Reports: Hx Gastroesophageal Reflux Disease, Other GI Disorders - UMBILICAL HERNIA AND CHOLELIATHIASIS Denies: Hx Ulcer Musculoskeletal History: Reports: Other Musculoskeletal History - CARPAL TUNNEL RIGHT HAND Sensory History: Reports: Hx Contacts or Glasses - GLASSES Denies: Hx Hearing Aid Opthamlomology History: Reports: Hx Contacts or Glasses - GLASSES Neurological History: Reports: Hx Migraine - Q 3 MONTHS, Hx Seizures - AGE 2 Psychiatric History: Reports: Hx Anxiety - Surgical History Surgery Procedure, Year, and Place: wisdom teeth. CSECTION 2018 Hx Anesthesia Reactions: No Infectious Disease History: No Infectious Disease History: Denies: Hx Hepatitis, Hx Human Immunodeficiency Virus (HIV), Traveled Outside the [place] in Last 30 Days - Family History Known Family History: Negative: Cardiac Disease, Hypertension, Diabetes - Social History Alcohol Use: Rare Substance Use Type: Reports: None Smoking Status (MU): Former Smoker Have You Smoked in the Last Year: No Review of Systems Negative: Fever Negative: Chest Pain Negative: Shortness Of Breath Positive: Edema - left leg All Other Systems Reviewed And Are Negative: Yes Physical Exam Triage Information Reviewed: Yes Vital Signs On Initial Exam: Initial Vitals Temp Pulse Resp BP Pulse Ox 97 F 80 16 161/95 98 01/17/20 11:18 04/29/19 11:18 04/29/19 11:18 04/29/19 11:18 04/29/19 11:18 Vital Signs Reviewed: Yes Appearance: Positive: Well-Appearing Skin: Positive: Warm, Dry Head/Face: Positive: Normal Head/Face Inspection Eyes: Positive: Normal, Conjunctiva Clear ENT: Positive: Pharynx normal Respiratory/Lung Sounds: Positive: Clear to Auscultation, Breath Sounds Present Cardiovascular: Positive: Normal, RRR Neurological: Positive: Normal Psychiatric: Positive: Normal Procedures - Sedation Patient Received Moderate/Deep Sedation with Procedure: No Diagnostics - Vital Signs Vital Signs Temp Pulse Resp BP Pulse Ox 04/29/19 11:18 97 F 80 16 161/95 98 - Laboratory Lab Results: Lab Results 04/29/19 04/29/19 Range/Units 11:34 11:34 WBC 6.4 (3.5-10.8) 10^3/uL RBC 4.69 (3.70-4.87) 10^6 /uL Hgb 13.7 (12.0-16.0) g/dL Hct 39 (35-47) % MCV 84 (80-97) fL MCH 29 (27-31) pg MCHC 35 (31-36) g/dL RDW 14 (10-15) % Plt Count 296 (150-450) 10^3/uL MPV 7.1 L (7.4-10.4) fL Neut % (Auto) 49.0 % Lymph % (Auto) 37.9 % Hamilton % (Auto) 6.6 % Eos % (Auto) 5.5 % Baso % (Auto) 1.0 % Absolute Neuts (auto) 3.2 (1.5-7.7) 10^3/ul Absolute Lymphs (auto) 2.4 (1.0-4.8) 10^3/ul Absolute Monos (auto) 0.4 (0-0.8) 10^3/ul Absolute Eos (auto) 0.4 (0-0.6) 10^3/ul Absolute Basos (auto) 0.1 (0-0.2) 10^3/ul Absolute Nucleated RBC 0.0 10^3/ul Nucleated RBC % 0.1 Sodium 135 (135-145) mmol/L Potassium 4.3 (3.5-5.0) mmol/L Chloride 106 (101-111) mmol/L Carbon Dioxide 20 L (22-32) mmol/L Anion Gap 9 (2-11) mmol/L BUN 17 (6-24) mg/dL Creatinine 0.60 (0.51-0.95) mg/dL Est GFR ( Amer) 142.0 (>60) Est GFR (Non-Af Amer) 117.4 (>60) BUN/Creatinine Ratio 28.3 H (8-20) Glucose 90 (70-100) mg/dL Calcium 9.2 (8.6-10.3) mg/dL Total Bilirubin 0.40 (0.2-1.0) mg/dL AST 15 (13-39) U/L ALT 27 (7-52) U/L Alkaline Phosphatase 61 (34-104) U/L Total Protein 7.3 (6.4-8.9) g/dL Albumin 4.3 (3.2-5.2) g/dL Globulin 3.0 (2-4) g/dL Albumin/Globulin Ratio 1.4 (1-3) Beta HCG, Quant < 0.60 mIU/mL Result Diagrams: 04/29/19 11:34 04/29/19 11:34 Lab Statement: Any lab studies that have been ordered have been reviewed, and results considered in the medical decision making process. - Ultrasound No standard instances Ultrasound Interpretation Completed By: Radiologist Summary of Ultrasound Findings: IMPRESSION: NO EVIDENCE OF DEEP VENOUS THROMBOSIS IS IDENTIFIED. Lower Extremity Course/Dx - Course Course Of Treatment: 29 year old female presents with left leg swelling for the past couple days. States she's been sick with a cold. Has had occasional cough. Denies any chest pain or shortness breath. Does have a history of DVTs. Denies any recent travel. Last dvt was when she was . No family history of blood clots. She denies any calf pain. seen her primary today who sent her in for an ultrasound. On exam nontender left leg. Trace edema noted some left leg. Neurovascular intact. Ultrasound shows no DVT. Told to treat with ice and compression. Patient understands and agrees the plan. - Diagnoses Differential Diagnosis/HQI/PQRI: Positive: DVT, Phlebitis, Sprain Provider Diagnoses: Leg edema, left Discharge ED - Sign-Out/Discharge Documenting (check all that apply): Patient Departure - Discharge Plan Condition: Good Disposition: HOME Patient Education Materials: Leg Edema (ED) Referrals: Nely Suggs MD [Primary Care Provider] - Additional Instructions: Use compression socks Ice Elevate Take Tylenol for pain every 6 hours Follow up with primary within 5 days Return to ED if develop any new or worsening symptoms - Billing Disposition and Condition Condition: GOOD Disposition: Home
[2019-04-29 13:58] VITALS: BP 118/89
== END 2019-04-29 13:57 | disposition home or self-care (01) ==
LOC: ED 11:16
DX: R60.0 Localized edema (principal); D64.9 Anemia, unspecified; J45.909 Unspecified asthma, uncomplicated; K21.9 Gastro-esophageal reflux disease without esophagitis; F41.9 Anxiety disorder, unspecified
CPT/HCPCS: 36415; 80053; 84702; 85025; 99282